=== PATIENT | female | born 1975 | race African-American/Black ===

== ENCOUNTER 2016-06-13 01:36 | Emergency (ER) | payer MEDICARE, MEDICAID ==
[~2016-06-13] VITALS: Ht 157.5 cm; Wt 150.0 kg
[~2016-06-13 01:36] MED LIST: AMOXICILLIN500 MG OR; CYCLOBENZAPR10 MG PO; DUONEB IN; DYAZIDE1 CAP OR; FLEXERIL PO; FLEXERIL10 MG PO; LASIX 40 MG TAB40 MG OR; LORTAB 5 OR; MEDDOSEPAK PO; METOPROL TAR50 MG OR; NAPROSYN500 MG PO; NAPROXEN500 MG PO; PROAIR HFA IN; TESSALON200 MG PO; TYLENOL # 31 TAB PO; ZITHROMAX250 MG PO; ZITHROMAX500 MG PO; ZOFRAN ODT4 MG SL
[2016-06-13 02:21] LABS: HEMATOCRIT 42.6 % (37.0-47.0); IMMATURE GRANULOCYTES 0.4 % (0.0-1.0); MEAN CELL VOLUME 90.4 fL CALC (80.0-100.0); MEAN CORPUSCULAR HGB 29.7 pG CALC (26.0-32.0); MEAN CORPUSCULAR HGB CONC 32.9 g/L CALC (32.0-36.0); NEUT# 5.79 thou/uL (2.00-7.15); RED BLOOD COUNT 4.71 mill/uL (4.20-5.60); RED CELL DISTRI WIDTH 14.2 % (11.5-15.5)
[2016-06-13 02:31] LABS: ALBUMIN 4.1 g/dL (3.2-5.0); ALKALINE PHOSPHATASE 514 u/l (38-126); AMYLASE 98 u/l (30-110); ANION GAP 18 (6-22 (CALC)); BILIRUBIN, TOTAL 2.4 mg/dL (0.0-1.4); BUN 8 mg/dL (7-17); BUN/CREATININE RATIO 11 (12-20 (CALC)); CALCIUM 9.5 mg/dL (8.4-10.2); CARBON DIOXIDE 26 mmol/l (22-30); CHLORIDE 103 mmol/l (95-108); CREATININE 0.7 mg/dL (0.5-1.0); GFR > 60 ML/MIN (>=60 (CALC)); GFR FOR AFR.AMER. > 60 ML/MIN (>=60 (CALC)); GLUCOSE 116 mg/dL (65-105); LIPASE 61 u/l (23-300); POTASSIUM 3.7 mmol/l (3.5-5.1); SGOT/AST 90 u/l (14-36); SGPT/ALT 56 u/l (9-52); SODIUM 143 mmol/l (137-146); TOTAL PROTEIN 10.2 g/dL (6.3-8.2)
[2016-06-13 02:43] LABS: MYOGLOBIN 56 ng/mL (0 - 62)
[2016-06-13 13:28] VITALS: BP 108/65
== END 2016-06-13 13:42 | disposition left against medical advice (07) ==
LOC: ED 01:36
PROVIDERS: Emergency Medicine
DX: K56.69 Other intestinal obstruction (principal); R10.13 Epigastric pain; R11.2 Nausea with vomiting, unspecified; I10 Essential (primary) hypertension; K21.9 Gastro-esophageal reflux disease without esophagitis
CPT/HCPCS: S0164

== ENCOUNTER 2016-07-01 14:15 | Emergency (ER) | payer MEDICARE, MEDICAID ==
[~2016-07-01] VITALS: Ht 157.5 cm; Wt 150.0 kg
[2016-07-01] MEDS ORDERED: ATENOLOL50 MG PO (14:40)
[2016-07-01] MEDS ORDERED: DUONEB IN (14:41)
[2016-07-01] MEDS ORDERED: AMLODIPINE BESYL5 MG PO (14:41)
[2016-07-01] MEDS ORDERED: LISINOPRIL20 M1 PO (14:42)
[2016-07-01] MEDS ORDERED: NAPROSYN500 MG PO (15:51)
[2016-07-01] MEDS ORDERED: FLEXERIL PO (15:51)
[2016-07-01 16:06] VITALS: BP 128/81
== END 2016-07-01 16:10 | disposition home or self-care (01) ==
LOC: ED 14:15
DX: S39.012A Strain of muscle, fascia and tendon of lower back, initial encounter (principal); I10 Essential (primary) hypertension; J45.909 Unspecified asthma, uncomplicated; K21.9 Gastro-esophageal reflux disease without esophagitis; X58.XXXA Exposure to other specified factors, initial encounter

== ENCOUNTER 2016-07-19 03:05 | Emergency (ER) | payer MEDICARE, MEDICAID ==
[~2016-07-19] VITALS: Ht 157.5 cm; Wt 150.0 kg
[~2016-07-19 03:05] MED LIST changes: +AMLODIPINE BESYL5 MG PO; +ATENOLOL50 MG PO; +LISINOPRIL20 M1 PO
[2016-07-19] MEDS ORDERED: Levaquin PO (04:09)
[2016-07-19] MEDS ORDERED: CODEINE/GUAIFEN1 SOL PO (04:09)
[2016-07-19] MEDS ORDERED: PERCOCET 5/325M1 TAB PO (04:10)
[2016-07-19 04:39] VITALS: BP 134/87
== END 2016-07-19 04:41 | disposition home or self-care (01) ==
LOC: ED 03:05
DX: H66.93 Otitis media, unspecified, bilateral (principal); J02.9 Acute pharyngitis, unspecified

== ENCOUNTER 2016-08-04 10:24 | Emergency (ER) | payer MEDICARE, MEDICAID ==
[~2016-08-04] VITALS: Ht 167.6 cm; Wt 145.4 kg
[~2016-08-04 10:24] MED LIST changes: +CODEINE/GUAIFEN1 SOL PO; +Levaquin PO; +PERCOCET 5/325M1 TAB PO
[2016-08-04] MEDS ORDERED: ULTRAM50 M1 PO (11:11)
[2016-08-04] MEDS ORDERED: BACTRIM DS1 TAB PO (11:11)
[2016-08-04 11:20] VITALS: BP 129/74
== END 2016-08-04 11:20 | disposition home or self-care (01) ==
LOC: ED 10:24
DX: L03.012 Cellulitis of left finger (principal); M79.645 Pain in left finger(s)

== ENCOUNTER 2017-02-02 13:25 | Emergency (ER) | payer MEDICARE, MEDICAID ==
[~2017-02-02] VITALS: Ht 167.6 cm; Wt 165.6 kg
[~2017-02-02 13:25] MED LIST changes: +BACTRIM DS1 TAB PO; +ULTRAM50 M1 PO
[2017-02-02 13:26] VITALS: BP 148/94
[2017-02-02] MEDS ORDERED: COMBIVENT RESPIMAT IN (13:32)
[2017-02-02] MEDS ORDERED: TESSALON PERLE100 MG (13:33)
[2017-02-02] MEDS ORDERED: MEDDOSEPAK PO (14:59)
== END 2017-02-02 15:15 | disposition home or self-care (01) ==
LOC: ED 13:25
DX: J45.909 Unspecified asthma, uncomplicated (principal); I10 Essential (primary) hypertension; K21.9 Gastro-esophageal reflux disease without esophagitis

== ENCOUNTER 2017-02-07 20:28 | Emergency (ER) | payer MEDICARE, MEDICAID ==
[~2017-02-07] VITALS: Ht 167.6 cm; Wt 164.6 kg
[~2017-02-07 20:28] MED LIST changes: +COMBIVENT RESPIMAT IN; +TESSALON PERLE100 MG
[2017-02-07] MEDS ORDERED: TYLENOL # 31 TA1 PO (20:47)
[2017-02-07] MEDS ORDERED: PREDNISONE50 MG PO (20:47)
[2017-02-07] MEDS ORDERED: ZITHROMAX250 MG PO (20:47)
== END 2017-02-07 21:09 | disposition home or self-care (01) ==
LOC: ED 20:28
DX: J40 Bronchitis, not specified as acute or chronic (principal); R05 Cough; I10 Essential (primary) hypertension; R07.89 Other chest pain

== ENCOUNTER 2017-05-03 08:13 | Emergency (ER) | payer MEDICARE, MEDICAID ==
[~2017-05-03] VITALS: Ht 167.6 cm; Wt 140.0 kg
[~2017-05-03 08:13] MED LIST changes: +PREDNISONE50 MG PO; +TYLENOL # 31 TA1 PO
[2017-05-03] MEDS ORDERED: MEDDOSEPAK PO (09:32)
[2017-05-03] MEDS ORDERED: PROVENTIL HFA IN (09:32)
[2017-05-03 09:36] VITALS: BP 152/88
[2017-05-04] MEDS ORDERED: SYMBICORT 80-4.5MCG IN (06:45)
[2017-05-04] MEDS ORDERED: FLEXERIL PO (06:58)
[2017-05-04] MEDS ORDERED: TORADOL PO (06:58)
[2017-05-13] MEDS ORDERED: PHENTERMINE37.5 M1 PO (10:40)
== END 2017-05-03 09:44 | disposition home or self-care (01) ==
LOC: ED 08:13
DX: J45.909 Unspecified asthma, uncomplicated (principal); R06.02 Shortness of breath

== ENCOUNTER 2017-05-04 06:27 | Emergency (ER) | payer OTHER, MEDICARE, MEDICAID ==
[~2017-05-04] VITALS: Ht 167.6 cm; Wt 167.0 kg
[~2017-05-04 06:27] MED LIST changes: +PROVENTIL HFA IN
[2017-05-04] MEDS ORDERED: SYMBICORT 80-4.5MCG IN (06:45)
[2017-05-04] MEDS ORDERED: FLEXERIL PO (06:58)
[2017-05-04] MEDS ORDERED: TORADOL PO (06:58)
[2017-05-04 07:00] VITALS: BP 146/52
[2017-05-13] MEDS ORDERED: PHENTERMINE37.5 M1 PO (10:40)
== END 2017-05-04 07:06 | disposition home or self-care (01) | DRG 552 ==
LOC: ED 06:27
DX: M54.9 Dorsalgia, unspecified (principal); G89.29 Other chronic pain; J45.909 Unspecified asthma, uncomplicated; V89.2XXA Person injured in unspecified motor-vehicle accident, traffic, initial encounter

== ENCOUNTER 2017-11-08 16:39 | Emergency (ER) | payer MEDICARE ==
[~2017-11-08] VITALS: Ht 165.1 cm; Wt 162.2 kg
[~2017-11-08 16:39] MED LIST changes: +PHENTERMINE37.5 M1 PO; +SYMBICORT 80-4.5MCG IN; +TORADOL PO
[2017-11-08] MEDS ORDERED: XANAX0.5 MG PO (17:06)
[2017-11-08 17:12] VITALS: BP 158/105
== END 2017-11-08 17:13 | disposition home or self-care (01) ==
LOC: ED 16:39
DX: F41.9 Anxiety disorder, unspecified (principal); J45.909 Unspecified asthma, uncomplicated

== ENCOUNTER 2018-02-27 06:14 | Emergency (ER) | payer MEDICARE ==
[~2018-02-27] VITALS: Ht 165.1 cm; Wt 155.2 kg
[~2018-02-27 06:14] MED LIST changes: +XANAX0.5 MG PO
[2018-02-27] MEDS ORDERED: PREDNISONE20 MG PO (07:06)
[2018-02-27] MEDS ORDERED: VISTARIL25 MG PO (07:06)
[2018-02-27] MEDS ORDERED: SMZ-TMP DS1 TAB PO (07:08)
[2018-02-27] MEDS ORDERED: ASPIRIN81 MG PO (07:09)
[2018-02-27] MEDS ORDERED: PERMETHRIN5 % EX (07:17)
[2018-02-27] MEDS ORDERED: CYCLOBENZAPR5 MG PO (07:17)
[2018-02-27 07:33] VITALS: BP 148/96
== END 2018-02-27 07:32 | disposition home or self-care (01) ==
LOC: ED 06:14
DX: B86 Scabies (principal); S39.012A Strain of muscle, fascia and tendon of lower back, initial encounter; J45.909 Unspecified asthma, uncomplicated; X58.XXXA Exposure to other specified factors, initial encounter

== ENCOUNTER 2018-04-06 12:47 | Emergency (ER) | payer MEDICARE ==
[~2018-04-06] VITALS: Ht 167.6 cm; Wt 150.0 kg
[~2018-04-06 12:47] MED LIST changes: +ASPIRIN81 MG PO; +CYCLOBENZAPR5 MG PO; +PERMETHRIN5 % EX; +PREDNISONE20 MG PO; +SMZ-TMP DS1 TAB PO; +VISTARIL25 MG PO
[2018-04-06 13:26] VITALS: BP 140/86
== END 2018-04-06 13:26 | disposition home or self-care (01) ==
LOC: ED 12:47
DX: F41.0 Panic disorder [episodic paroxysmal anxiety] (principal); I10 Essential (primary) hypertension; J45.909 Unspecified asthma, uncomplicated